=== PATIENT | female | born 1990 | race Two or more races ===

== ENCOUNTER 2019-06-05 | Emergency (ER) | payer SELFPAY ==
[~2019-06-05] VITALS: Ht 129.5 cm; Wt 64.9 kg
[2019-06-05 00:05] VITALS: BP 107/71
== END 2019-06-05 02:29 | disposition left against medical advice (07) ==
LOC: EDBD → ER 00:03
DX: M54.9 Dorsalgia, unspecified (principal); Z53.21 Procedure and treatment not carried out due to patient leaving prior to being seen by health care provider